=== PATIENT | male | born 1970 | race American Indian/Alaskan Native ===

== ENCOUNTER 2018-11-07 09:28 | Emergency (ER) | payer OTHER ==
[2018-11-07 09:34] VITALS: BP 141/87
[2018-11-07] MEDS ORDERED: FLEXERIL PO ONE (10:37)
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
== END 2018-11-07 11:18 | disposition home or self-care (01) ==
LOC: ED 09:28
DX: G44.209 Tension-type headache, unspecified, not intractable (principal); M54.9 Dorsalgia, unspecified; V49.49XA Driver injured in collision with other motor vehicles in traffic accident, initial encounter; Y93.89 Activity, other specified; Y92.89 Other specified places as the place of occurrence of the external cause; Y99.8 Other external cause status
CPT/HCPCS: 99282